=== PATIENT | male | born 1955 | race Caucasian/White ===

== ENCOUNTER 2024-08-03 06:23 | Day surgery (SDC) | payer MEDICARE, SELFPAY ==
[2024-07-19 11:44] LABS: Hematocrit 46.1 % (39.0-52.0); Hemoglobin 15.6 g/dL (13.0-18.0); Mean Corp Hgb Conc. 33.8 g/dL (33.0-37.0); Mean Corpuscular Hgb 28.1 pg (27.0-31.0); Mean Corpuscular Volume 82.9 fL (80.0-94.0); Mean Platelet Volume 9.3 fL (7.4-10.4); Platelet Count 286 10^3/uL (130-400); Red Blood Cell Count 5.56 10^6/uL (4.70-6.10); Red Cell Dist. Width 13.5 % (11.5-14.5)
[2024-07-19 13:35] LABS: Glycohemoglobin (HgbA1c) 5.9 % (4.0-5.6)
[2024-07-19 13:50] LABS: ALT (SGPT) 25 U/L (0-50); AST (SGOT) 28 U/L (17-59); Albumin 4.7 g/dl (3.5-5.0); Alkaline Phosphatase 48 U/L (38-126); Blood Urea Nitrogen 39 mg/dl (9-20); Calcium 9.7 mg/dl (8.4-10.2); Carbon Dioxide 28 mmol/L (22-30); Chloride 99 mmol/L (98-107); Glucose 141 mg/dl (70-99); Potassium 3.9 mmol/L (3.5-5.1); Sodium 140 mmol/L (135-145); Total Bilirubin 0.6 mg/dl (0.2-1.3); Total Protein 7.1 g/dl (6.3-8.2); eGFR > 60.00
[2024-07-19 14:08] VITALS: BMI 29.8
[2024-07-19 17:57] VITALS: BMI 29.8
[2024-08-03] VITALS (9 sets, daily range): BP systolic 102–139; BP diastolic 55–82
[2024-08-03] MEDS: CELEBREX 200 MG PO (08:00)
[2024-08-03] MEDS: TYLENOL 1000 MG PO (08:00)
[2024-08-03] MEDS: NORMOSOL-R/PLASMALYTE-A 1000 IV (08:14)
[2024-08-03] MEDS: DILAUDID 0.5 MG IV (12:06)
[2024-08-03] MEDS: COMPAZINE 10 MG IV (13:38)
[2024-08-03] MEDS: ANCEF 5 IV (13:47)
== END 2024-08-03 14:10 | disposition home or self-care (01) ==
LOC: SDS 06:23
PROVIDERS: ATTENDING PHYSICIAN Orthopaedic Surgery Hand Surgery; FAMILY PHYSICIAN Family Medicine
DX: M19.011 Primary osteoarthritis, right shoulder (principal)
CPT/HCPCS: 23472; C1776; C1713; 36415; 73020; 80053; 83036; 85027; 87070; 93005